=== PATIENT | female | born 1975 | race Caucasian/White ===

== ENCOUNTER 2022-07-03 05:26 | Day surgery (SDC) | payer SELFPAY ==
[2022-06-26 15:15] LABS: BASOPHILS % (AUTO) 0.7 % (0-1); EOSINOPHILS % (AUTO) 0.5 % (0-6); LYMPHOCYTES # (AUTO) 1.8 X10'3 (1.1-4.8); LYMPHOCYTES % (AUTO) 27.2 % (21-51); MEAN CORPUSCULAR HEMOGLOBIN 30.4 PG (27.0-31.0); MEAN CORPUSCULAR HGB CONC 34.4 g/dL (33.0-36.5); MEAN CORPUSCULAR VOLUME 88.5 FL (78-98); MEAN PLATELET VOLUME 8.6 FL (7.4-10.4); MONOCYTES # (AUTO) 0.4 X10'3 (0-0.9); MONOCYTES % (AUTO) 6.3 % (2-12); NEUTROPHILS # (AUTO) 4.3 X10'3 (1.8-7.7); NEUTROPHILS % (AUTO) 65.3 % (42-75); PRE OP HEMATOCRIT 42.4 % (35.0-45.0); PRE OP HEMOGLOBIN 14.6 g/dL (12.0-16.0); PRE OP PLATELET COUNT 249 X10'3 (140-440); RED BLOOD COUNT 4.79 X10'6 (4.20-5.60)
[2022-06-26 15:31] LABS: ALBUMIN 4.1 G/DL (3.4-5.0); ALBUMIN/GLOBULIN RATIO 1.1 (1.1-1.5); ALKALINE PHOSPHATASE 54 IU/L (46-116); BLOOD UREA NITROGEN 12 MG/DL (7-18); BUN/CREATININE RATIO 12.2 (6.6-38.0); CALCIUM 8.7 MG/DL (8.5-10.1); CHLORIDE 103 MMOL/L (99-107); CREATININE 0.98 MG/DL (0.40-0.90); PRE OP ALT 18 U/L (30-65); PRE OP ANION GAP 7 (8-16); PRE OP AST 18 U/L (10-37); PRE OP BILIRUB, TOTAL 0.7 MG/DL (0.0-1.0); PRE OP GLUCOSE 91 MG/DL (70-104); PRE OP POTASSIUM 3.6 MMOL/L (3.4-5.1); PRE OP SODIUM 140 MMOL/L (135-145); TOTAL CARBON DIOXIDE 30.3 MMOL/L (24-32); TOTAL PROTEIN 7.7 G/DL (6.4-8.2); eGFR 61 ML/MIN
[2022-06-26 16:02] LABS: HCG SERUM QL NEGATIVE
[~2022-07-03] VITALS: Ht 167.6 cm; Wt 69.5 kg
[2022-07-03] VITALS (11 sets, daily range): BP systolic 104–134; BP diastolic 63–78
[~2022-07-03 05:26] MED LIST: DESV100T16 PO; ringers solution, lacted 1,000 ML IV SCH
[2022-07-03] MEDS ORDERED: famotidine 20mg tablet PO ONE (05:30)
[2022-07-03] MEDS ORDERED: ceFAZolin inj. 2,000 MG in dextrose 5%-water 100 ML IV ONE (05:30)
[2022-07-03] MEDS ORDERED: TETRACAINE 0.5% 4 ML OPHTHALMIC DROPS ONE (06:13)
[2022-07-03] MEDS ORDERED: bacitracin 15gm ointment TP ONE (06:13)
[2022-07-03] MEDS ORDERED: BUPIVAcaine 0.5% W/EPI /PF 10ml vial ONE (06:13)
[2022-07-03] MEDS ORDERED: mineral oil/petrolatum ophthal oint ONE (06:13)
[2022-07-03] MEDS ORDERED: methylene blue (5mg/ml) 50mg/10ml ampul IV ONE (06:13)
[2022-07-03] MEDS ORDERED: BUPIVAcaine 0.25% w/Epi /PF 30ml vial ONE (06:13)
[2022-07-03] MEDS ORDERED: LIDOCAINE 2% w/EPI 1:100:000 30mL injection MDV**cath lab 1 only ONE (06:14)
[2022-07-03] MEDS ORDERED: BUPIVAcaine 0.5% inj/PF 0 ML ONE (06:15)
[2022-07-03] MEDS ORDERED: LIDOcaine 1% 30ml preserv. free vial ONE (06:15)
[2022-07-03] MEDS ORDERED: epiNEPHrine 1 mg/ml inj ONE (06:15)
[2022-07-03] MEDS ORDERED: LIDOcaine 0.5% (5mg/ml) 50ml vial ONE (06:58)
[2022-07-03] MEDS ORDERED: sevoflurane 250ml liquid IH ONE (07:26)
[2022-07-03] MEDS ORDERED: midazolam 1 mg/ML 2ml injection ONE (07:40)
[2022-07-03] MEDS ORDERED: LIDOcaine 1% w/EPI 1:100,000 30ml vial (MDV) IJ ONE (07:45)
[2022-07-03] MEDS ORDERED: fentaNYL /PF 50mcg/ml 5ml ampule ONE (07:49)
[2022-07-03] MEDS ORDERED: 0.9 % SODIUM CHLORIDE 10 ML VIAL ONE (08:14)
[2022-07-03] MEDS ORDERED: ePHEDrine 50MG/ML INJ. ONE (08:14)
[2022-07-03] MEDS ORDERED: LIDOcaine 2% (20mg/ml) 5ml vial ONE (08:14)
[2022-07-03] MEDS ORDERED: dexamethasone sod phosphate 4mg/ml inj. ONE (08:14)
[2022-07-03] MEDS ORDERED: ondansetron/PF 4mg/2ml inj ONE (08:14)
[2022-07-03] MEDS ORDERED: propofol inj 20 ML IV ONE ×4 (08:14)
[2022-07-03] MEDS ORDERED: phenylephrine 10mg/ml inj. -priapism dosing ONE (08:46)
[2022-07-03] MEDS ORDERED: LIDOcaine 0.5% W/epiNEPHrine 1:200,000 50ml vial IJ ONE (09:36)
[2022-07-03] MEDS ORDERED: labetalol 20mg/4ml (5mg/ml) syringe IV PRN (10:15)
[2022-07-03] MEDS ORDERED: ketorolac trometh. 30mg/ml inj. IV ONE (10:15)
[2022-07-03] MEDS ORDERED: ondansetron/PF 4mg/2ml inj IV PRN (10:15)
[2022-07-03] MEDS ORDERED: hydrALAZINE 20mg/ml inj. IV PRN (10:15)
[2022-07-03] MEDS ORDERED: acetaminophen 1,000mg/100ml IV 100 ML IV PRN (10:15)
[2022-07-03] MEDS ORDERED: proCHLORperazine 10 MG/2 ml inj IV PRN (10:15)
[2022-07-03] MEDS ORDERED: morphine 2 MG/ML inj. syringe IV PRN (10:15)
[2022-07-03] MEDS ORDERED: morphine 4 MG/ML inj SYRINge IV PRN (10:15)
[2022-07-03] MEDS ORDERED: HYDROmorphone/PF 0.2 MG/ML SYRINGE IV PRN ×2 (10:15)
[2022-07-03] MEDS ORDERED: ringers solution, lacted 1,000 ML IV SCH (10:15)
--- NOTE | 2022-07-03 11:25 | NUR ---
Received from OR via BED, accompanied by Anesthesiologist and report given by Anesthesiologist. PATIENT WAKING UP, NO S/S OF PAIN, V/S WNL, SCD ON, 20G TO LUE, FACIAL DRESSING CDI HOB 30DEGREES, DWIGHT DRAINS BILATERAL SIDES OF FACE WITH SCANT OUTPUT SO FAR.
--- NOTE | 2022-07-03 13:35 | NUR ---
PATIENT A&OX4, DENIES PAIN, V/S WNL, SCD OFF, 20G TO LUE D/C, FACIAL DRESSING CDI HOB 30DEGREES, DWIGHT DRAINS BILATERAL SIDES OF FACE WITH SCANT OUTPUT SO FAR. I HAVE REVIEWED D/C INSTRUCTIONS WITH PATIENT and they have verbalized understanding patient d/c home with all belongings and family gave transport home.
== END 2022-07-03 13:35 | disposition home or self-care (01) ==
LOC: PAS 05:26
PROVIDERS: ATTEND Specialist
DX: Z41.1 Encounter for cosmetic surgery (principal); F32.9 Major depressive disorder, single episode, unspecified; Z79.899 Other long term (current) drug therapy; Z98.890 Other specified postprocedural states; Z72.89 Other problems related to lifestyle
CPT/HCPCS: 15829; 15876; 36415; 80053; 82948; 84703; 85025; 93005; A6402; C1758; J0131; J0171; J0690; J1100; J1885; J2250; J2370; J2405; J2704; J3010; J3490; J7030; J7060; J7120; Q9968; Z7506; Z7508; Z7512; A4215; A4618; A6446; A6449; A6455; A7000; S0020